=== PATIENT | female | born 1990 | race Caucasian/White ===

== ENCOUNTER 2025-08-14 12:33 | Inpatient (IN) | payer SELFPAY ==
[~2025-08-14] VITALS: Ht 165.1 cm; Wt 97.5 kg
[2025-08-14 12:35] VITALS: O2SAT 100
[2025-08-14] MEDS: SODIUM CHLORIDE 0.9% 1,000 ML IV ONE (13:49)
[2025-08-14 14:31] LABS: BG DEOXYHEMOGLOBIN 21.5 % (0.0-5.0)
[2025-08-14 15:19] LABS: BASOPHILS % 0.4 % (0.0-2.0); EOSINOPHILS % 0.8 % (0.0-5.0); HEMATOCRIT. 41.5 % (36.0-48.0); HEMOGLOBIN. 13.5 g/dL (12.0-16.0); LYMPHOCYTES % 33.7 % (20.0-50.0); MEAN PLATELET VOLUME 10.5 fl (7.4-10.4); MONOCYTES % 6.1 % (2.0-8.0); NEUTROPHILS % 59.0 % (40.0-76.0); PLATELET 219 x1000/uL (130-400); RED BLOOD CELL COUNT 4.85 mill/uL (4.2-5.4); RED CELL DISTRIBUTION WIDTH 13.3 % (11.6-14.6)
[2025-08-14 15:26] LABS: CREATININE 0.7 mg/dL (0.6-1.0)
[2025-08-14 15:27] LABS: UREA NITROGEN BLOOD 7 mg/dL (9-23)
[2025-08-14 15:28] LABS: ASPARTATE AMINOTRANSFERASE 72 IU/L (<34)
[2025-08-14 15:29] LABS: BILIRUBIN DIRECT < 0.1 mg/dL (<=3.0); BILIRUBIN TOTAL 0.2 mg/dL (0.1-1.0); PROTEIN TOTAL 7.5 g/dL (6.0-8.3)
[2025-08-14 15:57] LABS: HCG SCREEN NEGATIVE
[2025-08-14] MEDS: ACETAMINOPHEN 325MG TABLET PO ONE (16:58)
[2025-08-14] MEDS: KETOROLAC 15MG/ML VIAL IV ONE (16:59)
[2025-08-14] MEDS: AMLODIPINE 10MG TABLET PO SCH (17:15)
[2025-08-14] MEDS ORDERED: CLONIDINE 0.1MG TABLET PO PRN (17:15)
[2025-08-14] MEDS ORDERED: GUAIFENESIN 200MG/10ML SUGAR FREE UDC PO PRN (17:15)
[2025-08-14] MEDS ORDERED: ACETAMINOPHEN 325MG TABLET PO PRN ×2 (17:15)
[2025-08-14] MEDS ORDERED: ONDANSETRON HCL 4MG/2ML INJ IV PRN (17:15)
[2025-08-14] MEDS ORDERED: IPRATROPIUM/ALBUTEROL 0.5-3(2.5)MG/3ML NEB HHN PRN (17:15)
[2025-08-14] MEDS: KETOROLAC 15MG/ML VIAL IV SCH (17:30)
[2025-08-14] MEDS ORDERED: DEXTROSE 50% WATER 50ML SYRINGE IV PRN (17:30)
[2025-08-14 17:43] LABS: CLARITY URINE CLEAR (CLEAR); GLUCOSE URINE 3+ (NEGATIVE); KETONES URINE NEGATIVE (NEGATIVE); LEUKOCYTE ESTERASE URINE NEGATIVE (NEGATIVE); NITRITE URINE NEGATIVE (NEGATIVE); OCCULT BLOOD URINE NEGATIVE (NEGATIVE); PH URINE 6.5 (4.5-8.0); PROTEIN URINE NEGATIVE (NEGATIVE); SPECIFIC GRAVITY URINE 1.012 (1.005-1.030); UROBILINOGEN URINE 0.2 E.U./dL (0.2-1.0)
[2025-08-14 17:51] LABS: *AMPHETAMINES SCREEN URINE NEGATIVE (NEGATIVE); *BARBITURATES SCREEN URINE NEGATIVE (NEGATIVE); *BENZODIAZEPINES SCREEN URINE NEGATIVE (NEGATIVE); *COCAINE SCREEN URINE NEGATIVE (NEGATIVE); CANNABINOID URINE SCREEN NEGATIVE (NEGATIVE); ECSTASY MDMA SCREEN URINE NEGATIVE (NEGATIVE); METHADONE URINE SCREEN NEGATIVE (NEGATIVE); OPIATES URINE SCREEN NEGATIVE (NEGATIVE); PHENCYCLIDINE URINE SCREEN NEGATIVE (NEGATIVE)
[2025-08-14 18:01] LABS: COLOR URINE STRAW (YELLOW)
[2025-08-14 18:03] LABS: BACTERIA URINE NONE SEEN; RBC URINE NONE SEEN /hpf (0-2); SQUAMOUS EPITHELIAL CELL URINE FEW /lpf (RARE/1+); WBC URINE NONE SEEN /hpf (0-2)
[2025-08-14] MEDS: SODIUM CHLORIDE 0.9% 1,000 ML IV SCH (18:45)
[2025-08-14] MEDS: INSULIN LISPRO 100 UNITS/ML SUBCUT SCH (19:06)
[2025-08-14 21:00] VITALS: BP 139/77; PULSE 72; RESP 18; TEMP 36.14
[2025-08-14] MEDS: BLOOD SUGAR DIAGNOSTIC STRIP TEST SCH (21:00)
[2025-08-14] MEDS: NAPROXEN 250MG TABLET PO SCH (22:28)
[2025-08-15] MEDS: PANTOPRAZOLE 40MG DR TABLET PO SCH (06:25)
[2025-08-15 08:00] VITALS: BP 131/72; PULSE 65; RESP 18; TEMP 36.3; O2SAT 97
[2025-08-15 08:19] LABS: BASOPHILS % 0.5 % (0.0-2.0); EOSINOPHILS % 2.0 % (0.0-5.0); HEMATOCRIT. 41.7 % (36.0-48.0); HEMOGLOBIN. 13.8 g/dL (12.0-16.0); LYMPHOCYTES % 38.5 % (20.0-50.0); MEAN PLATELET VOLUME 9.9 fl (7.4-10.4); MONOCYTES % 7.3 % (2.0-8.0); NEUTROPHILS % 51.7 % (40.0-76.0); PLATELET 193 x1000/uL (130-400); RED BLOOD CELL COUNT 4.81 mill/uL (4.2-5.4); RED CELL DISTRIBUTION WIDTH 13.3 % (11.6-14.6)
[2025-08-15 08:20] LABS: CREATININE 0.7 mg/dL (0.6-1.0)
[2025-08-15 08:21] LABS: TRIGLYCERIDE 120 mg/dL (0-150); UREA NITROGEN BLOOD 7 mg/dL (9-23)
[2025-08-15 08:22] LABS: LDL CHOLESTEROL 104 mg/dL (5-100); T4 FREE 1.23 ng/dL (0.89-1.76)
[2025-08-15 12:00] VITALS: BP 126/79; PULSE 67; RESP 16; TEMP 36.2; O2SAT 98
[2025-08-15 16:00] VITALS: BP 125/74; PULSE 66; RESP 17; TEMP 36.6; O2SAT 97
[2025-08-15 20:00] VITALS: BP 128/77; PULSE 71; RESP 17; TEMP 36.4; O2SAT 97
[2025-08-16] VITALS: BP 106/58; PULSE 70; RESP 17; TEMP 36.3; O2SAT 97
[2025-08-16 04:00] VITALS: BP 93/74; PULSE 66; RESP 18; TEMP 36.4; O2SAT 97
[2025-08-16 05:22] LABS: BASOPHILS % 0.5 % (0.0-2.0); EOSINOPHILS % 1.9 % (0.0-5.0); HEMATOCRIT. 40.2 % (36.0-48.0); HEMOGLOBIN. 13.2 g/dL (12.0-16.0); LYMPHOCYTES % 35.7 % (20.0-50.0); MEAN PLATELET VOLUME 9.9 fl (7.4-10.4); MONOCYTES % 6.4 % (2.0-8.0); NEUTROPHILS % 55.5 % (40.0-76.0); PLATELET 198 x1000/uL (130-400); RED BLOOD CELL COUNT 4.62 mill/uL (4.2-5.4); RED CELL DISTRIBUTION WIDTH 13.8 % (11.6-14.6)
[2025-08-16 05:36] LABS: CREATININE 0.7 mg/dL (0.6-1.0); UREA NITROGEN BLOOD 7 mg/dL (9-23)
[2025-08-16 08:00] VITALS: BP 117/74; PULSE 64; RESP 15; TEMP 35.9; O2SAT 98
[2025-08-16 12:00] VITALS: BP 111/63; PULSE 73; RESP 16; TEMP 36.3; O2SAT 98
[2025-08-16] MEDS ORDERED: PANT40TA51 MT (12:08)
[2025-08-16] MEDS ORDERED: METF-1149 MT (12:08)
[2025-08-16] MEDS ORDERED: IBUP-1455 MT (12:08)
[2025-08-16] MEDS ORDERED: ASPI-1497 MT (12:08)
[2025-08-16 14:07] VITALS: BP 111/63; PULSE 73; RESP 16; TEMP 97.3
== END 2025-08-16 14:52 | disposition home or self-care (01) | DRG 54 ==
LOC: ER 12:33 → EDBEDREQ 16:53 → EDBEDREQTM 16:53 → EDBEDREQSVC 18:20 → 5WST 19:39
PROVIDERS: ADMIT Internal Medicine; ATTEND Internal Medicine
DX: G43.109 Migraine with aura, not intractable, without status migrainosus (principal); Z66 Do not resuscitate; F07.81 Postconcussional syndrome; I10 Essential (primary) hypertension; E11.9 Type 2 diabetes mellitus without complications; M54.12 Radiculopathy, cervical region; Z87.820 Personal history of traumatic brain injury; Z79.899 Other long term (current) drug therapy
CPT/HCPCS: 36415; 72040; 80048; 80061; 80076; 80305; 81003; 82010; 82040; 82375; 82803; 82962; 83036; 84439; 84443; 84481; 84703; 85025; 93005; 93970; 96361; 96374; 99285; A4606; J1815; J1885; J7030